=== PATIENT | male | born 1955 | race Caucasian/White ===

== ENCOUNTER → 2016-11-02 | Outpatient (CLI) | payer BC ==
--- NOTE | 2016-11-02 17:58 | DX ---
Chest, Two Views at 1005 hours History: Exertional dyspnea. Cough. Our 03.24 Comparison: None. Findings: Cardiac silhouette is within normal range. Bilateral peribronchial thickening. No pneumonia , congestive heart failure, pleural effusion, or pneumothorax. Tortuous thoracic aorta. Impression: 1. Bronchitis. 2. No definite pneumonia.
== END ==
LOC: BRMIMAGING 09:56
PROVIDERS: ATTEND Family Medicine
DX: J40 Bronchitis, not specified as acute or chronic (principal)
CPT/HCPCS: 71020-PO